=== PATIENT | female | born 1985 | race Caucasian/White ===

== ENCOUNTER 2019-10-12 14:48 | Observation (INO) ==
[2019-10-12] MEDS ORDERED: Betamethasone Acet/SodPhos 30 MG/5 ML VIAL IM SCH (15:00)
[2019-10-12 15:23] LABS: Bilirubin,Urine Negative (Negative); Blood,Urine Negative (Negative); Clarity,Urine Cloudy (Clear); Color,Urine Yellow (Yellow); Glucose,Urine (UA) Normal (Normal); Ketones,Urine Negative (Negative); Leukocyte Esterase,Urine Small (Negative); Nitrite,Urine Negative (Negative); PH,Urine 7.5 pH Units (5.0-8.0); Protein,Urine Negative (Neg-Trace); Specific Gravity,Urine 1.009 (1.010-1.025); Urobilinogen,Urine Normal (Normal)
[2019-10-12 15:25] LABS: Bacteria,Urine Moderate per hpf (None-Few); Hyaline Casts,Urine None Seen per lpf (None-Few)
[2019-10-12 15:35] LABS: RBC,Urine 0-3 per hpf (0-3); Squamous Epithelial Cell,Urine Few per lpf (None-Few); WBC,Urine 0-3 per hpf (0-3)
[2019-10-12 16:13] LABS: Trichomonas DNA Not Detected (Not Detect)
[2019-10-12 16:14] LABS: Candida DNA Not Detected (Not Detect); Gardnerella DNA Not Detected (Not Detect)
== END 2019-10-12 16:30 | disposition home or self-care (01) ==
LOC: 1NENULAB
PROVIDERS: ADMIT Obstetrics & Gynecology; ATTEND Obstetrics & Gynecology

== ENCOUNTER 2019-12-07 10:00 | Inpatient (IN) ==
[2019-12-07] MEDS ORDERED: Metoclopramide 10 MG/2 ML VIAL IVP PRN (10:15)
[2019-12-07] MEDS ORDERED: Ondansetron 4 MG/2 ML VIAL IVP PRN (10:15)
[2019-12-07] MEDS ORDERED: *HR* FentaNYL (PF) 100 MCG/2 ML VIAL IVP PRN (10:15)
[2019-12-07] MEDS ORDERED: Famotidine 20 MG/2 ML VIAL IVP PRN (10:15)
[2019-12-07] MEDS ORDERED: Azithromycin 500 MG in 0.9 % Sodium Chloride 250 ML IVPB ONE (10:15)
[2019-12-07] MEDS ORDERED: Lidocaine 1% 20 ML MDV INFILT PRN (10:15)
[2019-12-07] MEDS ORDERED: Naloxone 0.4 MG/ML INJ IVP PRN (10:15)
[2019-12-07 11:10] LABS: Basophils % 0.1 %; Hematocrit 39.3 % (35.3-44.9); Hemoglobin 12.5 g/dL (11.5-15.4); Immature Granulocytes % 0.5 % (0-4); Lymphocytes # 1.4 K/mcL (0.6-4.6); Lymphocytes % 15.2 %; Mean Corpuscular HGB Conc 31.8 g/dL (31.6-35.5); Mean Corpuscular Hemoglobin 26.7 pg (28.0-33.3); Mean Corpuscular Volume 83.8 fL (83.0-100.0); Mean Platelet Volume 10.7 fL (9.4-12.4); Monocytes # 0.8 K/mcL (0.0-1.3); Neutrophils # 7.2 K/mcL (1.6-8.9); Platelet Count 208 K/mcL (140-400); Red Blood Count 4.69 M/mcL (3.82-4.97); Segmented Neutrophils % 76.2 %; White Blood Count 9.5 K/mcL (4.3-11.1)
[2019-12-07 11:11] LABS: Amphetamine Screen,Urine Negative ng/mL (Cutoff=1000); Barbiturate Screen,Urine Negative ng/mL (Cutoff=200); Benzodiazepines Screen,Urine Negative ng/mL (Cutoff=200); Cannabinoid Screen,Urine Negative ng/mL (Cutoff = 50); Cocaine Screen,Urine Negative ng/mL (Cutoff= 300); Opiate Screen,Urine Negative ng/mL (Cutoff=300); Phencyclidine Screen,Urine Negative ng/mL (Cutoff=25)
[2019-12-07] MEDS ORDERED: Clindamycin 900 MG/50 ML 900 MG/50 ML IV.SOLN IVPB SCH ×2 (11:30→16:00)
[2019-12-07] MEDS ORDERED: Oxytocin 20 units/ LR 1000 mL 20 UNIT/1,000 ML BAG IVC SCH ×2 (11:45→21:42)
[2019-12-07] MEDS: Ringers Solution, Lactated 1,000 ML IVC SCH ×2 (12:07→17:32)
[2019-12-07] MEDS ORDERED: EPHEDrine 50 MG/ML VIAL IVP PRN (13:59)
[2019-12-07] MEDS ORDERED: Epidural Premix (fent/bupiv) 110 ML EP SCH (14:00)
[2019-12-07] MEDS ORDERED: *HR* FentaNYL (PF) 100 MCG/2 ML VIAL ONE (17:00)
[2019-12-07] MEDS ORDERED: Ropivacaine/PF 0.2% 20 ML VIAL ONE (17:00)
[2019-12-07] MEDS ORDERED: Lidocaine -MPF 2% 5 ML VIAL ONE (17:58)
[2019-12-07] MEDS ORDERED: Neosporin OINT 15 GM TUBE TP SCH (21:42)
[2019-12-07] MEDS ORDERED: Lanolin 7 G OINT...G. TP PRN (21:42)
[2019-12-07] MEDS ORDERED: Rho Immune Globulin 1,500 UNIT SYRINGE IM PRN (21:42)
[2019-12-07] MEDS ORDERED: Acetaminophen 325 MG TABLET PO PRN (21:42)
[2019-12-07] MEDS ORDERED: Measles/Mumps/Rubella Vacc 0.5 ML VIAL SQ PRN (21:42)
[2019-12-07] MEDS ORDERED: Benzocaine/Menthol 56 GM AEROSOL SPRAY TP PRN (21:42)
[2019-12-07] MEDS: Ibuprofen 600 MG TABLET PO PRN (22:28)
[2019-12-08] MEDS: Ibuprofen 600 MG TABLET PO PRN ×2 (04:36→13:27)
[2019-12-08] MEDS ORDERED: Prenatal Vit/FA 1 EACH TABLET PO SCH (09:00)
[2019-12-08 15:44] VITALS: BP 97/62
== END 2019-12-08 19:15 | disposition home or self-care (01) | DRG 807 ==
LOC: 1NENULAB 10:01 → 1NENUOBS 21:40
PROVIDERS: ADMIT Obstetrics & Gynecology; ATTEND Obstetrics & Gynecology